=== PATIENT | male | born 1955 | race Asian ===

== ENCOUNTER 2025-02-25 12:05 | Emergency (ER) | payer MEDICARE, MEDICAID, SELFPAY ==
[2025-02-25 12:07] VITALS: BMI 23.2
[2025-02-25 12:25] VITALS: BP 118/64; PULSE 104; RESP 18; TEMP 37.1; O2SAT 97
--- NOTE | 2025-02-25 12:36 | XR_ITS ---
Examination: Foot, left views, 3 views Technique: AP, oblique, lateral views foot, 3 views Date and time of exam: February 25, 2025 12:45 PM Indications: Nonhealing ulcer first digit noticed beginning one month ago. Findings: Cortical bone destruction ungual tuft tip distal phalanx first digit with associated soft tissue ulcer No fracture No foreign body Impression: Osteomyelitis ungual tuft tip distal phalanx first digit
--- NOTE | 2025-02-25 12:47 | PD.EDRME ---
Rapid Medical Screening Exam [facility] Arrival date/time: 02/25/25 12:05 This is a 69-year-old male that comes into the emergency room with complaints of left great toe pain. Patient denies trauma to this toe. Patient also states that is left foot is swollen. However on assessment it appears that both is feet appear to be swollen. Patient has some mild erythema to his left great toe and also wound to the top of his left great toe. Patient denies past medical history. I have greeted and performed a focused initial assessment of this patient. Initial appropriate labs ordered at this time. A comprehensive ED assessment and evaluation of the patient and analysis of all test and completion of medical decision making process will be conducted by additional ED provider. Chief Complaint: Extremity Problem,Nontraumatic Time Seen by Provider: 02/25/25 12:09 Vital signs: Vital Signs Temperature 98.8 F 02/25/25 12:25 Pulse Rate 104 H 02/25/25 12:25 Respiratory Rate 18 02/25/25 12:25 Blood Pressure 118/64 02/25/25 12:25 Pulse Oximetry (%) 97 02/25/25 12:25 Oxygen Delivery Method Room Air 02/25/25 12:25
[2025-02-25 13:12] LABS: Basophils # (Auto) 0.1 Thou/mm3 (0.0-0.2); Basophils % (Auto) 1 % (0-2.5); Eosinophils # (Auto) 0.2 Thou/mm3 (0.0-0.5); Eosinophils % (Auto) 2 % (0-10); Hematocrit 37.0 % (41.0-53.0); Hemoglobin 12.1 g/dL (13.5-16.0); Immature Granulocytes Auto 0.02 Thou/mm3 (0.00-0.00); Lymphocytes # (Auto) 2.1 Thou/mm3 (1.0-4.8); Lymphocytes % (Auto) 31 % (10-50); Mean Corpuscular HGB Conc 32.7 g/dl (31.0-37.0); Mean Corpuscular Hemoglobin 26.7 pg (25.0-35.0); Mean Corpuscular Volume 82 fL (80-100); Monocytes # (Auto) 0.8 Thou/mm3 (0.0-0.8); Monocytes % (Auto) 12 % (0-12); Neutrophils # (Auto) 3.7 Thou/mm3 (1.8-7.7); Neutrophils % (Auto) 54 % (37-80); Nucleated Red Blood Cell # 0.00 Thou/mm3 (0.00-0.00); Nucleated Red Blood Cell % 0 /100 WBC (0); Platelet Count 250 Thou/mm3 (140-440); RDW Standard Deviation 42.2 fL (35.1-43.9); Red Blood Count 4.54 Miln/mm3 (4.50-5.90); White Blood Count 6.8 Thou/mm3 (3.8-10.6)
[2025-02-25 13:47] LABS: Alanine Aminotransferase 24 U/L (10-49); Albumin, Serum 4.3 gm/dL (3.4-4.8); Albumin/Globulin Ratio 1.5 (1.2-2.2); Alkaline Phosphatase 113 U/L (46-116); Anion Gap 7 (7-16); Aspartate Amino Transferase 22 U/L (0-34); BUN/Creatinine Ratio 16 Ratio (12-20); Bilirubin,Total 0.4 mg/dL (0.3-1.2); Blood Urea Nitrogen 18 mg/dL (9-23); C-Reactive Protein < 0.5 mg/dL (0.0-0.9); Calcium 9.4 mg/dL (8.3-10.6); Calcium (Corrected) 9.4 mg/dL (8.5-10.1); Carbon Dioxide 31.3 mMol/L (20.0-31.0); Chloride 102 mMol/L (98-107); Creatinine (Component) 1.1 mg/dL (0.6-1.3); Estimated Creatinine Clearance 47.6 mL/min (>60); Globulin 2.8 gm/dL (2.3-3.5); Glucose 93 mg/dL (74-106); Osmolality,Calculated 281 (275-295); Potassium 3.9 mMol/L (3.4-5.1); Sodium 140 mMol/L (136-145); Total Protein 7.1 gm/dL (5.7-8.2); eGFR > 60 See Note
[2025-02-25 15:12] VITALS: BP 127/66; PULSE 90; RESP 17; TEMP 36.5; O2SAT 99
--- NOTE | 2025-02-25 15:22 | PD.EDWOUND ---
ED Wound/Laceration-RME/HPI General Chief Complaint: Extremity Problem,Nontraumatic Stated Complaint: BLE SWELLING, L. LEG FEELS HOT, WOUND TO LEFT LEG Time Seen by Provider: 02/25/25 12:09 Arrival date/time: 02/25/25 12:05 Limitations: no limitations RME / HPI RME / HPI narrative: 69-year-old male who is here today as his friend who helps provide the translation. He is here today with a left great toe pain. He states a couple weeks ago, he had a blister that he cut into. He now has surrounding erythema, edema, and pain. He denies any chronic medical illness including diabetes. He has no other injuries or concerns. Related Data Home Medications ?Medication ?Instructions ?Recorded ?Confirmed ciprofloxacin HCl 500 mg tablet ##14 05/17/14 ibuprofen 600 mg tablet ##60 05/17/14 ranitidine HCl 150 mg tablet ##60 05/17/14 Previous Rx's ?Medication ?Instructions ?Recorded ibuprofen 600 mg tablet 600 mg PO Q6HR PRN PAIN #25 tabs 04/21/16 clindamycin HCl 300 mg capsule 300 mg PO Q6H #28 caps 02/25/25 Allergies Allergy/AdvReac Type Severity Reaction Status Date / Time No Known Allergies Allergy Verified 02/25/25 12:07 Review of Systems Review of Systems Systems Reviewed: All systems reviewed, normal except as documented ED Exam General Limitations: Present no limitations General appearance: Present alert and in no apparent distress Head Head exam: Present atraumatic Eye Eye exam: Present normal appearance, PERRL and EOMI ENT ENT exam: Present normal exam, normal oropharynx and mucous membranes moist Neck Neck exam: Present normal inspection, full ROM and trachea midline Chest Chest inspection: Present normal inspection and symmetric chest wall rise Respiratory Respiratory exam: Present normal lung sounds bilaterally Cardiovascular Cardiovascular exam: Present regular rate, normal rhythm and normal heart sounds Abdominal Exam Abdominal exam: Present soft and normal bowel sounds Extremities Exam Extremities exam: Present normal inspection and full ROM Back Exam Back exam: Present normal inspection and full ROM Neurological Exam Neurological exam: Present alert and oriented X3 Psychiatric Psychiatric exam: Present normal affect and normal mood Skin Skin exam: Present warm and other (Mild erythema at the left helix. There is no fluctuance or discharge. There is a healing, distal, wound..) Course Quality Measures none Orders Category Date Time Status XR foot comp LT min 3V Stat Exams 02/25/25 12:36 Completed CBC Stat Lab 02/25/25 13:04 Completed CRP [C-Reactive Protein] Stat Lab 02/25/25 13:04 Completed Comprehensive Metabolic Panel Stat Lab 02/25/25 13:04 Completed Clindamycin Vial [Cleocin vial] Med 02/25/25 15:18 Discontinued 600 mg IM X1 ONE Vital Signs Vital signs: Vital Signs Temperature 98.8 F 02/25/25 12:25 Pulse Rate 104 H 02/25/25 12:25 Respiratory Rate 18 02/25/25 12:25 Blood Pressure 118/64 02/25/25 12:25 Pulse Oximetry (%) 97 02/25/25 12:25 Oxygen Delivery Method Room Air 02/25/25 12:25 Wound / Laceration MDM Narrative MDM Narrative:: 69-year-old male who is here today as his friend who helps provide the translation. He is here today with a left great toe pain. He states a couple weeks ago, he had a blister that he cut into. He now has surrounding erythema, edema, and pain. He denies any chronic medical illness including diabetes. He has no other injuries or concerns. Hospital admission was offered to the patient but he declined. He states he has a girlfriend at home that stays in a wheelchair and needs assistance. We discussed the possibility of progression of his disease including worsening infection. Patient verbalized understanding. He will be given a dose of clindamycin and be discharged with a prescription of clindamycin. He is encouraged to follow-up with his doctor closely this week for close recheck. He was invited return here at anytime for any worsening or emergent changes. Patient data External records reviewed:: None Clinical information provided by:: patient Social determinants that could affect healthcare access:: none Patient has the following chronic illnesses:: n/a How is presenting disease/condition affected by chronic disease/condition?: no chronic disease Evaluation data The following diagnostics were reviewed and interpreted by me:: lab results (No significant leukocytosis or anemia. There is no metabolic derangement. CRP is unremarkable.) and radiology exam(s) (No acute fracture. Radiology reports osteomyelitis of the left big toe.) Lab and/or radiology exams considered but not ordered:: n/a Interpretation Summary: Osteomyelitis of left toe Medications / Prescriptions Medications or Prescriptions considered but not ordered:: n/a Medication administrations:: Medication Administration History Discontinued Medications Clindamycin Phosphate (Clindamycin Phos Inj 150 Mg/Ml Vial 6 Ml) 600 mg IM X1 ONE Stop: 02/25/25 15:19 See above Consultations Consultation(s) initiated? (list below): No Diagnosis Wound Differential Diagnosis: abscess and avulsion of skin Most likely diagnosis given after review of the tests above:: Osteomyelitis Admission Indicated Admission indicated?: indicated Admission Request Was there a request for admission?: No Disposition Plan Disposition Plan: Discharge Discharge Attestation Discharge Attestation: The patient and all family members were given an opportunity to ask questions and understood the discharge instructions. Discharge instructions specifically effects, indications for sooner follow up or return to the emergency department, and the expected course of current diagnosis. Patient condition: Stable Discharge Plan Plan Patient Disposition: HOME (Self Care) Patient condition on transfer: Stable Prescriptions/Referrals Prescriptions/Med Rec: New clindamycin HCl 300 mg capsule 300 mg PO Q6H Qty: 28 0RF No Action ciprofloxacin HCl 500 MG tablet Qty: 14 ranitidine HCl 150 MG tablet Qty: 60 ibuprofen 600 MG tablet Qty: 60 ibuprofen 600 MG tablet 600 mg PO Q6HR PRN (Reason: PAIN) Qty: 25 0RF Problem List Clinical Impression: Acute osteomyelitis of toe Patient/Caregiver Discharge Instructions Education Materials: Osteomyelitis Dc Additional Instructions: - Use the provided antibiotics as prescribed. - It is extremely important that you follow-up with your doctor this week for recheck. - We have advised hospital admission to which you have declined. Without further intervention, your infection may lead to loss of your toe, or worsening infection. - You are invited to return at anytime for any worsening or emergent changes. Print Language: Armenian Stand Alone Forms: Jaqueline Award Info., Patient Portal Info Letter
[2025-02-25] MEDS: CLINDAMYCIN PHOS INJ 150 MG/ML VIAL 6 ML 600 MG IM (16:41)
== END 2025-02-25 16:50 | disposition home or self-care (01) ==
LOC: SERX 16:55
PROVIDERS: Nurse Practitioner Family; Emergency Provider Emergency Medicine
DX: M86.172 Other acute osteomyelitis, left ankle and foot (principal)
CPT/HCPCS: 36415; 73630; 80053; 85025; 86140; 99283; J0736

== ENCOUNTER 2025-03-27 05:06 | Emergency (ER) | payer MEDICARE, MEDICAID, SELFPAY ==
[2025-03-27 05:10] VITALS: PULSE 100; RESP 22; O2SAT 99
--- NOTE | 2025-03-27 05:17 | PD.EDRME ---
Rapid Medical Screening Exam [facility] Arrival date/time: 03/27/25 05:06 Chief Complaint: Extremity Injury, Lower Vital signs: Vital Signs Pulse Rate 106 H 03/27/25 05:19 Respiratory Rate 32 H 03/27/25 05:19 Blood Pressure 118/56 L 03/27/25 05:19 Pulse Oximetry (%) 89 L 03/27/25 05:19 Oxygen Delivery Method Room Air 03/27/25 05:19 Vital signs reviewed by provider: Yes RME Narrative: 69yo male presents by EMS after having assumed upright position and developing intense pain of the LLE, and collapsed. No head strike or LOC. No reported chest pain or shortness of breath. Remained hemodynamically stable en route. PMH unremarkable for HTN, DM, asthma. Patient previously dx with prostate CA; was seen ~[address] [facility] with osteomyelitis. Clinical exam demonstrates evidence of possible arterial occlusion of LLE with transient mottling and poorly palpable pulses from femoral distally. Will initiate heparin therapy and obtain doppler US, as the patient will likely need CTA with run off.
--- NOTE | 2025-03-27 05:18 | EKG_ITS ---
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[id number] Requested By: Otoniel Das Order Number: [id number] Reading MD: Otoniel Das Measurements Intervals [place] Rate: 107 P: 66 LA: 199 QRS: 61 QRSD: 71 T: 83 QT: 311 QTc: 416 Interpretive Statements SINUS TACHYCARDIA LOW QRS VOLTAGE IN PRECORDIAL LEADS [QRS DEFLECTION < 1.0 mV IN CHEST LEADS] POSSIBLE RIGHT VENTRICULAR CONDUCTION DELAY [RSR (QR) IN V1/V2] ST ELEVATION, CONSIDER ANTERIOR INJURY [MARKED ST ELEVATION W/O NORMALLY INFLECTED T-WAVE IN V2-V5] MARKED ST ELEVATION, CONSIDER INFERIOR INJURY [MARKED ST ELEVATION W/O NORMALLY INFLECTED T-WAVE IN II/aVF] ACUTE FL No previous ECG available for comparison /store/[email or web address]/[id number]/[id number].pdf
--- NOTE | 2025-03-27 05:18 | XR_ITS ---
Examination: Arterial duplex lower extremity, left unilateral Date and time of exam: March 27, 2025, 0534 hours INDICATIONS: Leg pain and swelling today, left Findings: Duplex sonographic imaging of the lower extremity arteries using B-mode/Jama scale imaging and Doppler spectral analysis and color flow. Left common femoral artery demonstrates monophasic flow. Left superficial femoral artery demonstrates monophasic flow. Left popliteal artery demonstrates monophasic flow. Left posterior tibial artery demonstrated no flow. 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
[2025-03-27 05:19] VITALS: BP 118/56; PULSE 106; RESP 32; O2SAT 89
[2025-03-27 05:25] VITALS: BMI 22.1
--- NOTE | 2025-03-27 05:30 | PC.NURSE ---
TIM CH AT BEDSIDE. WHO STATES PT DID NOT HAVE A FALL, BUT WAS AWOKEN BY PT WHO WAS INSTRUCTING HER TO 911 DUE TO LEFT LOWER EXTREMITY PAIN. ON ARRIVAL, PT'S LEFT LOWER EXTREMITY APPEARS TO HAVE MOTTLING AND DIFFICULTY PALPABLE PULSES DISTAL FROM FEMORAL ARTERY. MD Rahul SANTOS AT BEDSIDE ASSESSING PT AT THIS TIME. PT PLACED ON CARDIAC AND VITAL SIGN MONITORING. PT APPEARS TO BE LABORED, TACHYPENIC, RR32, SATING 88%. PT PLACED ON OXY AT 10L PULSE OX IMPROVED TO 100% ON OXY. NEW ORDERS PROVIDED. WILL F/U WITH PT NEW ORDERS.
[2025-03-27] MEDS: ONDANSETRON INJ 2 MG/ML INJ 2 ML 4 MG IVP (05:32)
[2025-03-27] MEDS: MORPHINE SULF INJ 10 MG/ML VIAL 2 MG IVP (05:33)
[2025-03-27 05:34] LABS: Basophils # (Auto) 0.1 Thou/mm3 (0.0-0.2); Basophils % (Auto) 1 % (0-2.5); Eosinophils # (Auto) 0.1 Thou/mm3 (0.0-0.5); Eosinophils % (Auto) 1 % (0-10); Hematocrit 25.6 % (41.0-53.0); Immature Granulocytes Auto 0.16 Thou/mm3 (0.00-0.00); Lymphocytes # (Auto) 3.6 Thou/mm3 (1.0-4.8); Lymphocytes % (Auto) 22 % (10-50); Mean Corpuscular HGB Conc 32.4 g/dl (31.0-37.0); Mean Corpuscular Hemoglobin 26.4 pg (25.0-35.0); Mean Corpuscular Volume 82 fL (80-100); Monocytes # (Auto) 0.8 Thou/mm3 (0.0-0.8); Monocytes % (Auto) 5 % (0-12); Neutrophils # (Auto) 11.5 Thou/mm3 (1.8-7.7); Neutrophils % (Auto) 71 % (37-80); Nucleated Red Blood Cell # 0.00 Thou/mm3 (0.00-0.00); Nucleated Red Blood Cell % 0 /100 WBC (0); Platelet Count 239 Thou/mm3 (140-440); RDW Standard Deviation 40.1 fL (35.1-43.9); Red Blood Count 3.14 Miln/mm3 (4.50-5.90); White Blood Count 16.2 Thou/mm3 (3.8-10.6)
[2025-03-27] MEDS: SODIUM CHLORIDE 0.9% 1000 ML 1,000 ML 999 ML IV (05:35)
[2025-03-27 05:48] LABS: INR 1.1 (0.9-1.3); Prothrombin Time 12.3 Seconds (9.0-12.2)
[2025-03-27 05:54] LABS: Alanine Aminotransferase 11 U/L (10-49); Albumin, Serum 3.5 gm/dL (3.4-4.8); Albumin/Globulin Ratio 1.7 (1.2-2.2); Alkaline Phosphatase 69 U/L (46-116); Anion Gap 16 (7-16); Aspartate Amino Transferase 17 U/L (0-34); BUN/Creatinine Ratio 38 Ratio (12-20); Bilirubin,Total 0.4 mg/dL (0.3-1.2); Blood Urea Nitrogen 50 mg/dL (9-23); Calcium 9.0 mg/dL (8.3-10.6); Calcium (Corrected) 9.4 mg/dL (8.5-10.1); Carbon Dioxide 20.8 mMol/L (20.0-31.0); Chloride 103 mMol/L (98-107); Creatinine (Component) 1.3 mg/dL (0.6-1.3); Estimated Creatinine Clearance 38.6 mL/min (>60); Globulin 2.1 gm/dL (2.3-3.5); Glucose 195 mg/dL (74-106); Osmolality,Calculated 297 (275-295); Potassium 4.1 mMol/L (3.4-5.1); Sodium 140 mMol/L (136-145); Total Protein 5.6 gm/dL (5.7-8.2); Troponin I < 0.020 ng/mL (0.0-0.045); eGFR 59 See Note
[2025-03-27 06:01] VITALS: BP 102/59; PULSE 106; RESP 20; TEMP 36.4; O2SAT 100
--- NOTE | 2025-03-27 06:13 | XR_ITS ---
Examination: AP chest single view TECHNIQUE: AP portable semiupright chest single view Date and time: March 27, 2025, 0611 hours INDICATIONS: Shortness of breath today FINDINGS: Normal heart size Ectatic thoracic aorta. No pneumonia or pulmonary edema Prominent osteopenia IMPRESSION: No pneumonia or pulmonary edema
[2025-03-27 06:43] LABS: Hemoglobin 8.3 g/dL (13.5-16.0)
--- NOTE | 2025-03-27 06:51 | XR_ITS ---
Examination: CTA abdominal aorta iliofemoral runoff. 2-D sagittal coronal reconstructions. 3-D reconstructions, vascular March 27, 2025, 0739 hours INDICATIONS: Nonhealing ulcer distal portion first digit left foot 1 month Technique: Multiple CTA images of the abdominal aorta iliofemoral runoff arterial vessels, 2.0 mm slice thickness, post intravenous administration 130 cc Isovue 370 2-D sagittal coronal reconstructions. 3-D reconstructions, vascular 3-D postprocessing, including vascular maximum intensity projection images, 3-D volume rendering Low dose protocols were performed. One or more of the following dose reduction techniques were used; automated exposure control, adjustment of the mA and/or KV according to patient size, use of iterative reconstruction technique. 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 90% stenosis left common femoral artery 80% stenosis proximal 15 mm left superficial femoral artery 70% stenosis distal left superficial femoral artery Popliteal artery does fill Occlusions proximal left anterior tibial artery, multiple with no filling mid to distal left anterior tibial artery Left posterior tibial artery and main continuation tract demonstrated multiple stenoses and are severely attenuated There is filling of the dorsalis pedis artery. IMPRESSION: Mild aneurysmal dilatation infrarenal abdominal aorta Occlusion left common iliac artery. Occlusion left external iliac artery 90% stenosis left common femoral artery 80% stenosis proximal left superficial femoral artery 70% stenosis distal left superficial femoral artery Occlusions proximal left anterior tibial artery, multiple occlusions left posterior tibial artery and main continuation from
--- NOTE | 2025-03-27 06:52 | PD.EDEXREM ---
ED Extremity Problem RME/HPI General Chief complaint: Extremity Injury, Lower Stated complaint: FALL,LT LEG PAIN Time Seen by Provider: 03/27/25 06:36 Arrival date/time: 03/27/25 05:06 RME / HPI RME / HPI Narrative: 69yo male presents by EMS after having assumed upright position and developing intense pain of the LLE, and collapsed. No head strike or LOC. No reported chest pain or shortness of breath. Remained hemodynamically stable en route. PMH unremarkable for HTN, DM, asthma. 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 Clinical exam demonstrates evidence of possible arterial occlusion of LLE with transient mottling and poorly palpable pulses from femoral distally. Will initiate heparin therapy and obtain doppler US, as the patient will likely need CTA with run off. DR. CHRISTINE MAIN ED EVALUATION 69 year old male with history of prostate cancer status post XRT completed in 2013 and diagnosed with osteomyelitis of the left great toe ~ 1 month ago presents to the ED brought in by ambulance for evaluation of left lower extremity pain beginning yesterday and remaining constant since. Described as aching in sensation that is located all through the left lower extremity though most severe from the knee down to his foot. Patient denies any trauma/injuries. Denies any history of similar symptoms. Related Data Home Medications ?Medication ?Instructions ?Recorded ?Confirmed ciprofloxacin HCl 500 mg tablet ##14 05/17/14 ibuprofen 600 mg tablet ##60 05/17/14 ranitidine HCl 150 mg tablet ##60 05/17/14 Previous Rx's ?Medication ?Instructions ?Recorded ibuprofen 600 mg tablet 600 mg PO Q6HR PRN PAIN #25 tabs 04/21/16 clindamycin HCl 300 mg capsule 300 mg PO Q6H #28 caps 02/25/25 Allergies Allergy/AdvReac Type Severity Reaction Status Date / Time No Known Allergies Allergy Verified 03/27/25 05:19 Review of Systems Review of Systems Systems Reviewed: All systems reviewed, normal except as documented Past Medical History Social History SMOKING STATUS: Current some day smoker ED Exam Narrative Physical exam: Constitutional: Awake, alert, nontoxic, no acute distress HEENT: NC, AT, EOMI Neck: Supple CV: Mildly tachycardic, no m/r/g Lungs: CTAB, no w/r/r, no respiratory distress. Abd: Soft, NT, NT, no HSM noted to palpation Extremities: No deformities, the left foot is slightly cooler L>R, left foot is pale and mottled compared to the right foot Neuro: AAOx3, CN 2-12 GIBL, no acute neuro deficit noted. Skin: Warm, dry, intact Course Course Course Narrative: POCUS US performed at bedside to measure the aorta with is 3.4cm in diameter in the mid abdomen that is mildly dilated. I have discussed exam and US finding with the charge nurse and will initiate transfer. Patients hemoglobin dropped from 12.1 on 02/25/2025 to 8.3 today. Patient denies any obvious bleeding, blood in stool or urine. A stool hemoccult exam performed and was negative, stool brown in cool. 0736h: I spoke with vascular surgeon Dr. Ramsey at [facility]. He declines to accept the patient until the CTA is back to confirm there is an occlusion. Discussed there appears to be very high concern for arterial occlusion. Requesting CTA results to confirm occlusion and before accepting the patient for transfer. 0905h: Results of CT angio back, relayed to [facility], patient is excepted ED to ED. Patient remains on heparin drip at this time. 0923h: ETA for transfer is about 10 minutes at this time. Patient remaining vitally stable at present. Quality Measures none Orders Category Date Time Status CT Screening NOW Care 03/27/25 06:51 Active EKG (ED ONLY) *Do not use* NOW Care 03/27/25 05:18 Completed Notify provider NOW Care 03/27/25 05:26 Active Notify provider NOW Care 03/27/25 05:26 Active Referral - Supervisor [employer] Stat Cons 03/27/25 07:[address] angio abd ilio fem runoff Stat Exams 03/27/25 06:51 Completed CXR [XR chest 1V] Stat Exams 03/27/25 06:13 Completed EKG (ED Only) Stat Exams 03/27/25 05:18 Draft US arterial duplex LE LT Stat Exams 03/27/25 05:18 Completed CBC Stat Lab 03/27/25 05:20 Completed Comprehensive Metabolic Panel Stat Lab 03/27/25 05:20 Completed Lactate (Lactic Acid) Stat Lab 03/27/25 07:22 Ordered Occult Blood, Stool (LAB) Stat Lab 03/27/25 07:12 Ordered PT [Prothrombin Time with INR] Stat Lab 03/27/25 13:10 Ordered PTT [Partial Thromboplastin Time] Stat Lab 03/27/25 13:10 Ordered Partial Thromboplastin Time AM DRAW Lab 03/29/25 05:00 Ordered Partial Thromboplastin Time Stat Lab 03/27/25 05:20 Completed Prothrombin Time with INR AM DRAW Lab 03/29/25 05:00 Ordered Prothrombin Time with INR Stat Lab 03/27/25 05:20 Completed Troponin I Stat Lab 03/27/25 05:20 Completed VBG [Venous Blood Gas] Stat Lab 03/27/25 07:23 Ordered Heparin Inj Med 03/27/25 05:25 Discontinued 4,240 unit IV X1 ONE Heparin/D5w 25K 250 ML Ivpb [Heparin in D5w Ivpb] Med 03/27/25 07:00 Discontinued 25,000 unit in 250 ml IV 12 units/kg/hr Heparin/D5w 25K 250 ML Ivpb [Heparin in D5w Ivpb] Med 03/27/25 07:15 Active 25,000 unit in 250 ml IV 18 units/kg/hr Morphine Inj Med 03/27/25 05:18 Discontinued 2 mg IVP X1 ONE Ondansetron Inj [Zofran Inj] Med 03/27/25 05:18 Discontinued 4 mg IVP X1 ONE Sodium Chloride 0.9% 1000 ml [Ns] 1,000 ml Med 03/27/25 05:31 Discontinued IV 999 mls/hr Vital Signs Vital signs: Vital Signs Pulse Rate 106 H 03/27/25 05:19 Respiratory Rate 32 H 03/27/25 05:19 Blood Pressure 118/56 L 03/27/25 05:19 Pulse Oximetry (%) 89 L 03/27/25 05:19 Oxygen Delivery Method Room Air 03/27/25 05:19 Pulse ox is 100% on room air which is adequate. Extremity Problem MDM Narrative MDM Narrative:: Tiffanie Seymour am scribing for and in the presence of Dr. Christine. Patient data External records reviewed:: [facility] previous records (I reviewed ED visit on 02/25/2025 where he was diagnosed with left osteomyelitis ) and EMS form Clinical information provided by:: patient and EMS Social determinants that could affect healthcare access:: none Patient has the following chronic illnesses:: prostate cancer status post XRT completed in 2013 and diagnosed with osteomyelitis of the left great toe ~ 1 month ago How is presenting disease/condition affected by chronic disease/condition?: uneffected by Evaluation data The following diagnostics were reviewed and interpreted by me:: lab results, radiology exam(s) and EKG tracing(s) Lab and/or radiology exams considered but not ordered:: None Interpretation Summary: 03/27/2025 @ 05:27 AM. Sinus tachycardia, rate 107, no STEMI Ordering Physician: Otoniel Velasquez DO Date of Service: 03/27/25 Procedure(s): US arterial duplex LE LT Accession Number(s): [id number] cc: Otoniel Velasquez DO; Jacob King MD~ Examination: Arterial duplex lower extremity, left unilateral Date and time of exam: March 27, 2025, 0534 hours INDICATIONS: Leg pain and swelling today, left Findings: Duplex sonographic imaging of the lower extremity arteries using B-mode/Jama scale imaging and Doppler spectral analysis and color flow. Left common femoral artery demonstrates monophasic flow. Left superficial femoral artery demonstrates monophasic flow. Left popliteal artery demonstrates monophasic flow. Left posterior tibial artery demonstrated no flow. 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 No pneumonia or pulmonary edema Prominent osteopenia IMPRESSION: No pneumonia or pulmonary edema Dictated By: Jacob King MD Signed By: <Electronically signed by Jacob King MD in OV> 03/27/25 0752 Medications / Prescriptions Medications or Prescriptions considered but not ordered:: None Medication administrations:: Medication Administration History Heparin Sodium/Dextrose (Heparin In D5w Ivpb) 25,000 unit in 250 mls @ 9.553 mls/hr IV .Q24H [facility]; Protocol Stop: 04/10/25 07:14 Last Admin: 03/27/25 07:10 Dose: 18 units/kg/hr, 9.553 mls/hr Documented By: GAYLA Co-signed By: VG Discontinued Medications Heparin Sodium (Porcine) (Heparin Sod Inj 5000 Unit/Ml Vial) 4,240 unit IV X1 ONE; Protocol Stop: 03/27/25 05:26 Last Admin: 03/27/25 08:03 Dose: 4,240 unit Documented By: BERNARD Co-signed By: VIRGINIE Heparin Sodium/Dextrose (Heparin In D5w Ivpb) 25,000 unit in 250 mls @ 6.368 mls/hr IV .Q24H VINAY; Protocol Stop: 04/10/25 06:59 Last Admin: 03/27/25 07:10 Dose: Not Given Documented By: GAYLA Non-Admin Reason: Cancelled by Provider Sodium Chloride (Ns) 1,000 mls @ 999 mls/hr IV .Q1H1M ONE Stop: 03/27/25 06:31 Last Infusion: 03/27/25 06:45 Dose: Infused Documented By: Admin: 03/27/25 05:35 Dose: 999 mls/hr Documented By: GAYLA Morphine Sulfate (Morphine Sulf Inj 10 Mg/Ml Vial) 2 mg IVP X1 ONE Stop: 03/27/25 05:19 Last Admin: 03/27/25 05:33 Dose: 2 mg Documented By: GAYLA Ondansetron HCl (Ondansetron Inj 2 Mg/Ml Inj 2 Ml) 4 mg IVP X1 ONE; Protocol Stop: 03/27/25 05:19 Last Admin: 03/27/25 05:32 Dose: 4 mg Documented By: GAYLA See above Consultations Consultation(s) initiated? (list below): Yes Consultation #1 (Physician, Specialty, Details): I spoke with vascular surgeon Dr. Ramsey at [facility] as noted above. Time: 07:36 Diagnosis Extremity Problem Differential Diagnosis: gout, cellulitis and deep vein thrombosis of lower extremity Most likely diagnosis given after review of the tests above:: Arterial occlusion left lower extremity Admission Indicated Admission indicated?: not indicated Explain why admission is indicated or not indicated:: Transfer for vascular surgery Admission Request Was there a request for admission?: No Disposition Plan Disposition Plan: Transfer Critical Care Time Critical Care Time Critical Care Time: Yes Total Critical Care Time (min.): 36 Attestation: . Discharge Plan Plan Patient Disposition: [facility] Acute Care [facility] Pt Being Transferred to: [facility] Service Needed for Transfer: Vascular Surgery Patient condition on transfer: Stable Health Concerns: Note: Hb dipped from 12g to 8g in the past month - unknown cause - fecal occult negative. Prescriptions/Referrals Prescriptions/Med Rec: No Action ciprofloxacin HCl 500 MG tablet Qty: 14 ranitidine HCl 150 MG tablet Qty: 60 ibuprofen 600 MG tablet Qty: 60 ibuprofen 600 MG tablet 600 mg PO Q6HR PRN (Reason: PAIN) Qty: 25 0RF clindamycin HCl 300 mg capsule 300 mg PO Q6H Qty: 28 0RF Referrals: No Primary/Family,Physician [Primary Care Provider] - In 1 week Problem List Clinical Impression: Arterial occlusion, lower extremity Patient/Caregiver Discharge Instructions Print Language: Kyrgyz Stand Alone Forms: Jaqueline Award Info., Patient Portal Info Letter
--- NOTE | 2025-03-27 07:05 | PC.NURSE ---
DR CHRISTINE AT BEDSIDE PERFORMING STOOL OCCULT
[2025-03-27] MEDS: Heparin/D5w 25K 250 ML Ivpb 25,000 UNIT/250 ML BAG 9.553 UNIT IV (07:10)
[2025-03-27 07:11] LABS: Partial Thromboplastin Time 27.1 Seconds (22.0-36.0)
--- NOTE | 2025-03-27 07:22 | PC.CM ---
Addendum entered by Adrianne Mendez RN 03/27/25 12:51: 0930Patient accepted by DR Evans ED to ED. number to call report [phone]. Packet completed with 1 CD for [facility] and 1 packet for [facility]. Patient left at 1000. Addendum entered by Adrianne Mendez RN 03/27/25 08:51: 0850 I called and spoke to Tere at [facility] and I made sure she received the the CTA results. Addendum entered by Adrianne eMndez RN 03/27/25 08:46: 0845 I faxed results to of the CTA to [facility]. I updated Sabina charge nurse. Sabina states Dr. Wong would like patinet sent stat with air team once [facility] reviews CTA and gets back to us. Addendum entered by Adrianne Mendez RN 03/27/25 07:51: 0840 I received a call from Tere at the transfer center at [facility]. She states their doctor spoke to Dr. Wong and they are requesting CT. They would like to see the CT result once they are available. CT was ordered. Original Note: 0712 I received a referral to transfer patient for vascular surgery for LLE for lower left ext. artery occlusion. I faxed paperwork to [facility].
--- NOTE | 2025-03-27 07:30 | PC.NURSE ---
pt taken to CT by decontamination technician, accompanied by this RN.
[2025-03-27 08:00] VITALS: BP 121/64; PULSE 105; RESP 14; TEMP 36.9; O2SAT 100
[2025-03-27] MEDS: HEPARIN SOD INJ 5000 UNIT/ML VIAL 4240 UNIT IV (08:03)
--- NOTE | 2025-03-27 09:49 | PC.NURSE ---
Reach here to transfer pt. Heparin drip transferred with pt.
[2025-03-27 09:55] VITALS: BP 122/66; PULSE 100; RESP 16; TEMP 36.9; O2SAT 99
== END 2025-03-27 10:00 | disposition short-term general hospital (02) ==
PROVIDERS: Emergency Medicine; Emergency Provider Family Medicine
DX: I70.202 Unspecified atherosclerosis of native arteries of extremities, left leg (principal); R00.0 Tachycardia, unspecified
CPT/HCPCS: 36415; 71045; 75635; 80053; 82270; 82803; 83605; 84484; 85025; 85610; 85730; 93005; 93926; 96361; 96374; 96375; 99284; A4649; J1644; J2270; J2405; J7030; Q9967

== ENCOUNTER 2025-03-29 18:46 | Emergency (ER) | payer MEDICARE, MEDICAID, SELFPAY ==
[2025-03-29 18:53] VITALS: BP 126/71; PULSE 88; RESP 17; TEMP 36.8; O2SAT 100
--- NOTE | 2025-03-29 18:56 | PD.EDEXREM ---
ED Extremity Problem RME/HPI General Chief complaint: Extremity Injury, Lower Stated complaint: LEG NUMBNESS Time Seen by Provider: 03/29/25 18:50 Arrival date/time: 03/29/25 18:46 RME / HPI RME / HPI Narrative: DR. GONZALEZ MAIN ED EVALUATION: 69 y/o male with Hx of Smoking BIBA from home presents to ED c/o continued left leg numbness x 2 months. Per EMS, on arrival patient was GCS 15, 98% O2 sat on room air, and blood pressure of 152/84. Patient was seen here 2 days ago and transferred to [facility] for further evaluation and treatment of blood clots. No procedure was performed. Patient was discharged from [facility] on Wednesday and prescribed Plavix and ASA, but prescription was not filled. No other concerns or complaints expressed at this time. Related Data Home Medications ?Medication ?Instructions ?Recorded ?Confirmed ciprofloxacin HCl 500 mg tablet ##14 05/17/14 ibuprofen 600 mg tablet ##60 05/17/14 ranitidine HCl 150 mg tablet ##60 05/17/14 Previous Rx's ?Medication ?Instructions ?Recorded ibuprofen 600 mg tablet 600 mg PO Q6HR PRN PAIN #25 tabs 04/21/16 clindamycin HCl 300 mg capsule 300 mg PO Q6H #28 caps 02/25/25 Allergies Allergy/AdvReac Type Severity Reaction Status Date / Time No Known Allergies Allergy Verified 03/27/25 05:19 Review of Systems Review of Systems Systems Reviewed: All systems reviewed, normal except as documented Past Medical History Social History SMOKING STATUS: Current some day smoker ED Exam Narrative Physical exam: Generally the patient is in no obvious distress, heart is regular rate and rhythm, lungs clear to auscultation equal bilaterally, abdomen soft bowel sounds present nondistended nontender, neurologic exam patient is alert and oriented without focal motor deficits, extremities show no swelling to either lower extremity. The left lower extremity shows a very weakly palpable left femoral artery pulse with no pulses distally. Patient has a stronger right femoral artery pulse when compared to the left. There is no discoloration or mottling of the skin at this time. Patient has a scabbed over wound to the tip of the left toe. No gangrenous changes. Course Quality Measures none Orders Category Date Time Status Security Professional Q4H START 00 Care 03/29/25 19:42 Active Insert IV NOW Care 03/29/25 19:42 Active CBC Stat Lab 03/29/25 19:50 Completed CMP [Comprehensive Metabolic Panel] Stat Lab 03/29/25 19:50 Completed Morphine Inj Med 03/29/25 19:51 Discontinued 4 mg IVP X1 ONE Vital Signs Vital signs: Vital Signs Temperature 98.3 F 03/29/25 18:53 Pulse Rate 88 03/29/25 18:53 Respiratory Rate 17 03/29/25 18:53 Blood Pressure 126/71 03/29/25 18:53 Pulse Oximetry (%) 100 03/29/25 18:53 Oxygen Delivery Method Room Air 03/29/25 18:53 Extremity Problem MDM Narrative MDM Narrative:: Scribe Attestation: I, Delaney Charlton, am scribing for and in the presence of Dr. Gonzalez. Provider Notation: Although this document has been carefully reviewed, there may still be some phonetic and other typographical errors.? These errors are purely grammatical due to imperfections in the software program and should not be construed in any way to? compromise the substance of the patient's medical care during this visit. Differential diagnosis: Peripheral vascular disease, peripheral artery disease, aneurysm, DVT I reviewed the patient's paperwork from [facility] 2 days ago. He was transferred from our facility after a CT angiogram of the abdominal aorta with a bilateral iliofemoral runoff showing occlusion of the left common iliac artery, occlusion of the left external iliac artery, 90% stenosis of the left common femoral artery, 80% stenosis of the proximal left superficial femoral artery, 70% stenosis of the distal left superficial femoral artery as well as occlusions to the proximal left anterior tibial artery and multiple occlusions of the left posterior tibial artery. Patient was seen with consultation being obtained from vascular surgeon, Dr. Eavns at [facility] without any intervention being done. The patient was discharged on morphine Plavix aspirin and atorvastatin and was to have a 1 week follow-up with vascular surgeon Dr. Leyva in [place]. Apparently today the patient felt numbness and pain to his left lower extremity so he Nito presents here to the emergency room for further treatment and evaluation. I have reviewed the patient's workup done at our hospital 2 days ago including labs and radiographic studies. Patient is anemic. This is a rather profound drop from his hemoglobin of 12 a little over a month ago. 2 days ago the ER physician guaiac his stool and it was negative. I repeated that guaiac today and the rectal exam showed no gross blood with brown-colored stool and guaiac negative. The BUN was 52 days ago and 38 today. Creatinine is normal. It was stressed to the patient the importance of being on aspirin Plavix atorvastatin and the morphine for pain. He must follow-up with the vascular surgeon in [place]. Patient data External records reviewed:: [facility] previous records (Reviewed prior ED records from 03/27/25. Patient was seen for Arterial occlusion, lower extremity.) and EMS form Clinical information provided by:: patient and EMS Social determinants that could affect healthcare access:: other (specify) (Smoking) Patient has the following chronic illnesses:: None reported How is presenting disease/condition affected by chronic disease/condition?: no chronic disease Evaluation data The following diagnostics were reviewed and interpreted by me:: lab results Lab and/or radiology exams considered but not ordered:: None Interpretation Summary: See MDM above. Medications / Prescriptions Medications or Prescriptions considered but not ordered:: None Medication administrations:: Medication Administration History Discontinued Medications Morphine Sulfate (Morphine Sulf Inj 10 Mg/Ml Vial) 4 mg IVP X1 ONE Stop: 03/29/25 19:52 Last Admin: 03/29/25 20:15 Dose: 4 mg Documented By: IRWIN See above if any Consultations Consultation(s) initiated? (list below): No Diagnosis Extremity Problem Differential Diagnosis: cellulitis, superficial thrombophlebitis, lower extremity edema, deep vein thrombosis of lower extremity and other (PAD) Most likely diagnosis given after review of the tests above:: None Admission Indicated Admission indicated?: not indicated Explain why admission is indicated or not indicated:: Patient does not meet admission criteria. Admission Request Was there a request for admission?: No Disposition Plan Disposition Plan: Discharge Discharge Attestation Discharge Attestation: The patient and all family members were given an opportunity to ask questions and understood the discharge instructions. Discharge instructions specifically effects, indications for sooner follow up or return to the emergency department, and the expected course of current diagnosis. Patient condition: Stable Discharge Plan Plan Patient Disposition: HOME (Self Care) Prescriptions/Referrals Prescriptions/Med Rec: No Action ciprofloxacin HCl 500 MG tablet Qty: 14 ranitidine HCl 150 MG tablet Qty: 60 ibuprofen 600 MG tablet Qty: 60 ibuprofen 600 MG tablet 600 mg PO Q6HR PRN (Reason: PAIN) Qty: 25 0RF clindamycin HCl 300 mg capsule 300 mg PO Q6H Qty: 28 0RF Referrals: Latanya Eng NP [Primary Care Provider] - In 1 week Problem List Clinical Impression: PAD (peripheral artery disease) Patient/Caregiver Discharge Instructions Education Materials: PAD Additional Instructions: You must take your Plavix, aspirin and atorvastatin as prescribed. Take the morphine for pain. You must follow-up with the vascular surgeon in [place], Dr. Evans. Print Language: Norwegian Stand Alone Forms: Jaqueline Award Info., Patient Portal Info Letter
[2025-03-29 19:21] VITALS: PULSE 76; RESP 18; O2SAT 98; BMI 22.3
[2025-03-29 19:34] VITALS: BP 138/78; PULSE 93; RESP 18; TEMP 36.7; O2SAT 100
[2025-03-29 19:42] VITALS: PULSE 90
[2025-03-29 20:03] LABS: Basophils # (Auto) 0.1 Thou/mm3 (0.0-0.2); Basophils % (Auto) 1 % (0-2.5); Eosinophils # (Auto) 0.0 Thou/mm3 (0.0-0.5); Eosinophils % (Auto) 0 % (0-10); Hematocrit 23.3 % (41.0-53.0); Immature Granulocytes Auto 0.03 Thou/mm3 (0.00-0.00); Lymphocytes # (Auto) 1.2 Thou/mm3 (1.0-4.8); Lymphocytes % (Auto) 16 % (10-50); Mean Corpuscular HGB Conc 31.8 g/dl (31.0-37.0); Mean Corpuscular Hemoglobin 25.9 pg (25.0-35.0); Mean Corpuscular Volume 82 fL (80-100); Monocytes # (Auto) 0.6 Thou/mm3 (0.0-0.8); Monocytes % (Auto) 7 % (0-12); Neutrophils # (Auto) 5.9 Thou/mm3 (1.8-7.7); Neutrophils % (Auto) 76 % (37-80); Nucleated Red Blood Cell # 0.00 Thou/mm3 (0.00-0.00); Nucleated Red Blood Cell % 0 /100 WBC (0); Platelet Count 249 Thou/mm3 (140-440); RDW Standard Deviation 40.3 fL (35.1-43.9); Red Blood Count 2.86 Miln/mm3 (4.50-5.90); White Blood Count 7.8 Thou/mm3 (3.8-10.6)
[2025-03-29 20:07] LABS: Hemoglobin 7.4 g/dL (13.5-16.0)
[2025-03-29] MEDS: MORPHINE SULF INJ 10 MG/ML VIAL 4 MG IVP (20:15)
[2025-03-29 21:28] LABS: Alanine Aminotransferase 29 U/L (10-49); Albumin, Serum 3.9 gm/dL (3.4-4.8); Albumin/Globulin Ratio 1.6 (1.2-2.2); Alkaline Phosphatase 71 U/L (46-116); Anion Gap 8 (7-16); Aspartate Amino Transferase 49 U/L (0-34); BUN/Creatinine Ratio 38 Ratio (12-20); Bilirubin,Total 0.3 mg/dL (0.3-1.2); Blood Urea Nitrogen 38 mg/dL (9-23); Calcium 9.5 mg/dL (8.3-10.6); Calcium (Corrected) 9.6 mg/dL (8.5-10.1); Carbon Dioxide 25.7 mMol/L (20.0-31.0); Chloride 108 mMol/L (98-107); Creatinine (Component) 1.0 mg/dL (0.6-1.3); Estimated Creatinine Clearance 54.5 mL/min (>60); Globulin 2.4 gm/dL (2.3-3.5); Glucose 126 mg/dL (74-106); Osmolality,Calculated 294 (275-295); Potassium 4.4 mMol/L (3.4-5.1); Sodium 142 mMol/L (136-145); Total Protein 6.3 gm/dL (5.7-8.2); eGFR > 60 See Note
[2025-03-29 22:15] VITALS: BP 132/87; PULSE 87; RESP 19; TEMP 36.7; O2SAT 99
== END 2025-03-29 22:19 | disposition home or self-care (01) ==
PROVIDERS: Emergency Provider Emergency Medicine; PCP Nurse Practitioner Family
DX: I73.9 Peripheral vascular disease, unspecified (principal); Z87.891 Personal history of nicotine dependence
CPT/HCPCS: 36415; 80053; 85025; 96374; 99283; J2270

== ENCOUNTER 2025-03-30 08:35 | Emergency (ER) | payer MEDICARE, MEDICAID, SELFPAY ==
[2025-03-30] VITALS (9 sets, daily range): BP systolic 111–150; BP diastolic 50–84; PULSE 104–133; RESP 18–34; TEMP 36.4–36.8; O2SAT 96–100; BMI 18.3
--- NOTE | 2025-03-30 08:47 | EKG_ITS ---
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
--- NOTE | 2025-03-30 08:47 | XR_ITS ---
Examination: AP chest single view Technique one AP portable semiupright chest single view March 30, 2025 0922 hours INDICATIONS: Shortness of breath nausea vomiting beginning today. FINDINGS: Normal heart size. Lungs are clear. Moderate osteopenia IMPRESSION: No active disease
--- NOTE | 2025-03-30 08:48 | EKG_ITS ---
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1955 Requested By: Ovi Garcia Order Number: [id number] Reading MD: Ovi Garcia Measurements Intervals [place] Rate: 118 P: 64 RI: 153 QRS: 31 QRSD: 92 T: 61 QT: 320 QTc: 449 Interpretive Statements SINUS TACHYCARDIA LOW QRS VOLTAGE IN PRECORDIAL LEADS [QRS DEFLECTION < 1.0 mV IN CHEST LEADS] POSSIBLE RIGHT VENTRICULAR CONDUCTION DELAY [RSR (QR) IN V1/V2] ANTERIOR MYOCARDIAL INFARCTION , PROBABLY RECENT [40+ ms Q WAVE AND/OR ST/T ABNORMALITY IN V3/V4] ACUTE VA Compared to ECG 03/27/2025 05:33:12 Myocardial infarct finding now present T-wave abnormality no longer present /store/S0/[id number]
--- NOTE | 2025-03-30 08:51 | EDNOTE_ITS ---
<Statement entered by Grace Wong MD - 03/30/25 17:59> As co-signing physician, I was present and available for consult prn. ED General RME/HPI General Chief complaint: Nausea/Vomiting/Diarrhea Stated complaint: N/V Time Seen by Provider: 03/30/25 08:40 Arrival date/time: 03/30/25 08:35 RME / HPI RME / HPI narrative: 69-year-old male with past medical history of prostate cancer and osteomyelitis of the toe comes into the ED with chief complaint of coffee-ground emesis. Patient was previously seen in the ED on 03/27/2025 due to acute limb ischemia for which he was transferred to [facility] and was discharged the next day and came back to the ED on 03/29/2025 due to left lower leg pain again. 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 Patient today comes in brought by EMS with 1 episode of coffee-ground emesis, vitals showed tachycardia, but BP was stable.Patient stated that he did not have any procedure done in [facility]. Patient on assessment was in excruciating pain and only stated that he had a lot of pain in his feet. He mentioned has been taking his medication as prescribed including Plavix and aspirin. Otherwise he denied having any chest pain or abdominal pain. There is no history of cirrhosis. Otherwise no other complaints. Related Data Home Medications ?Medication ?Instructions ?Recorded ?Confirmed ciprofloxacin HCl 500 mg tablet ##14 05/17/14 ibuprofen 600 mg tablet ##60 05/17/14 ranitidine HCl 150 mg tablet ##60 05/17/14 Previous Rx's ?Medication ?Instructions ?Recorded ibuprofen 600 mg tablet 600 mg PO Q6HR PRN PAIN #25 tabs 04/21/16 clindamycin HCl 300 mg capsule 300 mg PO Q6H #28 caps 02/25/25 Allergies Allergy/AdvReac Type Severity Reaction Status Date / Time No Known Allergies Allergy Verified 03/27/25 05:19 Review of Systems Review of Systems Systems Reviewed: All systems reviewed, normal except as documented Past Medical History Social History SMOKING STATUS: Current some day smoker ED Exam Narrative Physical exam: Gen: A&O X 3, in moderate distress due to pain HEENT: NCAT, EOMI, Pupils reactive AR[place]IO, not icteric. External ears normal. No rhinorrhea. Dry mucous membranes. Neck: Supple, full range of motion, no observable masses, No meningeal sign. Lungs: No Respiratory distress, rapid shallow breathing, clear bilateral. CV: RRR, no murmurs. Abdomen: Soft, nondistended, No rebound tenderness. MSK: No joint swelling, no redness, right peripheral pulses present, left peripheral pulses absent, lumbar with no edema. Skin: No rashes, petechiae, lesions. Neuro: No focal neurological deficits appreciated, sensory and motor intact. Psych: Cooperative, appropriate mood and effect. Course Quality Measures none Orders Category Date Time Status Seasonal Tax Preparer Q4H START 00 Care 03/30/25 08:47 Completed Continuous Pulse Oximetry NOW Care 03/30/25 08:47 Completed EKG (ED ONLY) *Do not use* NOW Care 03/30/25 08:47 Completed EKG (ED ONLY) *Do not use* NOW Care 03/30/25 08:48 Completed In and Out Catheter X1 Care 03/30/25 09:23 Completed Insert IV NOW Care 03/30/25 08:48 Completed Obtain Old Medical Record X1 Care 03/30/25 08:49 Completed Transfuse,blood/blood products NOW Care 03/30/25 09:25 Completed Referral - Patient Care Secretary Stat Cons 03/30/25 09:50 Active CXRP [XR chest 1V portable] Stat Exams 03/30/25 08:47 Completed EKG (ED Only) Stat Exams 03/30/25 08:47 Draft EKG (ED Only) Stat Exams 03/30/25 08:48 Draft CBC [CBC] Stat Lab 03/30/25 08:45 Completed CMP [Comprehensive Metabolic Panel] Stat Lab 03/30/25 08:45 Completed Drug Screen,Urine Stat Lab 03/30/25 09:24 Completed Lactic Acid [Lactate (Lactic Acid)] Stat Lab 03/30/25 08:45 Completed Lactic Acid, 3 HR Stat Lab 03/30/25 12:20 Completed Magnesium Stat Lab 03/30/25 08:45 Completed Path Review Blood Smear Stat Lab 03/30/25 08:45 Completed Troponin I Stat Lab 03/30/25 08:45 Completed Type and Screen Stat Lab 03/30/25 08:45 Completed UA [Urinalysis] Stat Lab 03/30/25 09:24 Completed VBG [Venous Blood Gas] Stat Lab 03/30/25 08:57 Completed prbc [Red Blood Cells] Stat Lab 03/30/25 08:45 Completed HYDROmorphone INJ [Dilaudid Inj] Med 03/30/25 10:08 Discontinued 1 mg IVP X1 ONE Ondansetron Inj [Zofran Inj] Med 03/30/25 08:48 Discontinued 4 mg IVP X1 ONE Pantoprazole/Ns 80Mg IV Premix [Protonix/NS 80mg IV Med 03/30/25 08:48 Discontinued Premix] 80 mg in 100 ml IV X1 Pantoprazole/Ns 80Mg IV Premix [Protonix/NS 80mg IV Med 03/30/25 08:48 Discontinued Premix] 80 mg in 100 ml IV X1 Ringers Lactated 1000 ml [Lactated Ringers] 1,000 ml Med 03/30/25 08:48 Discontinued IV 999 mls/hr fentaNYL INJ [Sublimaze Inj] Med 03/30/25 09:15 Discontinued 100 mcg IVP X1 ONE fentaNYL INJ [Sublimaze Inj] Med 03/30/25 08:47 Discontinued 50 mcg IVP X1 ONE Vital Signs Vital signs: Vital Signs Temperature 98.2 F 03/30/25 08:37 Pulse Rate 113 H 03/30/25 08:37 Respiratory Rate 18 03/30/25 08:37 Blood Pressure 111/62 03/30/25 08:37 Pulse Oximetry (%) 98 03/30/25 08:37 Oxygen Delivery Method Nasal Cannula 03/30/25 08:37 Oxygen Flow Rate 6 03/30/25 08:37 Discharge Plan Plan Patient Disposition: [facility] Facility Pt Being Transferred to: [facility] Service Needed for Transfer: Vascular Surgery Prescriptions/Referrals Prescriptions/Med Rec: No Action ciprofloxacin HCl 500 MG tablet Qty: 14 ranitidine HCl 150 MG tablet Qty: 60 ibuprofen 600 MG tablet Qty: 60 ibuprofen 600 MG tablet 600 mg PO Q6HR PRN (Reason: PAIN) Qty: 25 0RF clindamycin HCl 300 mg capsule 300 mg PO Q6H Qty: 28 0RF Referrals: No Primary/Family,Physician [Primary Care Provider] - In 1 week Problem List Clinical Impression: Arterial occlusion, lower extremity, GI bleed Patient/Caregiver Discharge Instructions Print Language: Georgian Stand Alone Forms: Jaqueline Award Info., Patient Portal Info Letter MDM Narrative MDM hospital course: Patient was seen and evaluated upon arrival by myself. Diagnostic labs and imaging was ordered. Patient was in excruciating pain therefore fentanyl 50 mcg was given x 1. IV fluids and Protonix drip was also ordered. Spoke with GI specialist who stated that at this time given that patient does have limb ischemia and was on aspirin and Plavix due to his, but was complicated by GI bleed he would recommend transfer for vascular surgeon evaluation in the setting of GI bleed as patient may require higher level of care as if his as pirin and Plavix are discontinued his limb ischemia may worsen. Spoke with Dr. Burgess, vascular surgeon, at [facility] who stated he will accept the patient at this time for transfer ED to ED as patient will need an intervention. Was also aware of GI bleed and stated that they will have GI consulted. At this time patient is stable enough to be transferred. 13:51 Patient left for transfer. Case disclosed with Attending Dr. Marvin Garcia PGY2 Disclaimer: Even though this this note was dictated by speech recognition and even though it was carefully revised there may still be minor errors in client account assistant due to voice recognition software. Medication Administration(s) Medication Administration History Discontinued Medications Fentanyl Citrate (Fentanyl Cit Inj 50 Mcg/Ml Amp 2ml) 50 mcg IVP X1 ONE Stop: 03/30/25 08:48 Last Admin: 03/30/25 09:02 Dose: 50 mcg Documented By: Fentanyl Citrate (Fentanyl Cit Inj 50 Mcg/Ml Amp 2ml) 100 mcg IVP X1 ONE Stop: 03/30/25 09:16 Last Admin: 03/30/25 09:30 Dose: 100 mcg Documented By: GM Hydromorphone HCl (Hydromorphone Inj 2 Mg/Ml Vial) 1 mg IVP X1 ONE Stop: 03/30/25 10:09 Last Admin: 03/30/25 10:27 Dose: 1 mg Documented By: GM Pantoprazole Sodium (Protonix/Ns 80mg Iv Premix) 80 mg in 100 mls @ 400 mls/hr IV X1 ONE Stop: 03/30/25 09:02 Last Infusion: 03/30/25 09:25 Dose: Infused Documented By: Admin: 03/30/25 09:08 Dose: 400 mls/hr Documented By: BYRON Pantoprazole Sodium (Protonix/Ns 80mg Iv Premix) 80 mg in 100 mls @ 10 mls/hr IV X1 ONE Stop: 03/30/25 18:47 Last Admin: 03/30/25 09:28 Dose: 10 mls/hr Documented By: BYRON Lactated Ringer's (Lactated Ringers) 1,000 mls @ 999 mls/hr IV .Q1H1M ONE Stop: 03/30/25 09:48 Last Infusion: 03/30/25 09:28 Dose: Infused Documented By: Admin: 03/30/25 09:03 Dose: 999 mls/hr Documented By: BYRON Ondansetron HCl (Ondansetron Inj 2 Mg/Ml Inj 2 Ml) 4 mg IVP X1 ONE; Protocol Stop: 03/30/25 08:49 Last Admin: 03/30/25 09:02 Dose: 4 mg Documented By: BYRON
[2025-03-30] MEDS: fentaNYL CIT INJ 50 mCg/ML AMP 2ML IVP (09:02)
[2025-03-30] MEDS: ONDANSETRON INJ 2 MG/ML INJ 2 ML 4 MG IVP (09:02)
[2025-03-30] MEDS: RINGERS LACTATED 1000 ML 1,000 ML 999 ML IV (09:03)
[2025-03-30] MEDS: PANTOPRAZOLE/NS 80MG IV PREMIX 80 MG/100 ML BAG 400 MG IV (09:08)
[2025-03-30 09:18] LABS: Lactate (Lactic Acid) 4.6 mMol/L (0.4-2.0)
[2025-03-30 09:19] LABS: Basophils # (Auto) 0.1 Thou/mm3 (0.0-0.2); Basophils % (Auto) 1 % (0-2.5); Eosinophils # (Auto) 0.0 Thou/mm3 (0.0-0.5); Eosinophils % (Auto) 0 % (0-10); Immature Granulocytes Auto 0.03 Thou/mm3 (0.00-0.00); Lymphocytes # (Auto) 1.7 Thou/mm3 (1.0-4.8); Lymphocytes % (Auto) 23 % (10-50); Mean Corpuscular HGB Conc 32.8 g/dl (31.0-37.0); Mean Corpuscular Hemoglobin 26.8 pg (25.0-35.0); Mean Corpuscular Volume 82 fL (80-100); Monocytes # (Auto) 0.6 Thou/mm3 (0.0-0.8); Monocytes % (Auto) 7 % (0-12); Neutrophils # (Auto) 5.1 Thou/mm3 (1.8-7.7); Neutrophils % (Auto) 68 % (37-80); Nucleated Red Blood Cell # 0.02 Thou/mm3 (0.00-0.00); Nucleated Red Blood Cell % 0 /100 WBC (0); Platelet Count 272 Thou/mm3 (140-440); RDW Standard Deviation 40.3 fL (35.1-43.9); Red Blood Count 2.35 Miln/mm3 (4.50-5.90); White Blood Count 7.5 Thou/mm3 (3.8-10.6)
[2025-03-30 09:23] LABS: Hematocrit 19.2 % (41.0-53.0); Hemoglobin 6.3 g/dL (13.5-16.0)
[2025-03-30 09:23] LABS: Base Excess, Venous 0 (-3-3); O2 Saturation, Venous 39 % (96-97); PCO2, Venous 26 mmHg (36-56); PO2, Venous 20 mmHg (15-58); pH, Venous 7.56 (7.33-7.66)
[2025-03-30] MEDS: PANTOPRAZOLE/NS 80MG IV PREMIX 80 MG/100 ML BAG 10 MG IV (09:28)
[2025-03-30] MEDS: fentaNYL CIT INJ 50 mCg/ML AMP 2ML 100 MCG IVP (09:30)
[2025-03-30 09:36] LABS: Collection Type, Urine Voided; Squamous Epithelial Cell,Urine 0 /hpf (0-5)
--- NOTE | 2025-03-30 09:47 | PC.NURSE ---
[facility] CONTACTED, SPOKE WITH NANCY. INFORMED THAT WE ARE ATTEMPTING TO OBTAIN RECORDS FROM THIS WEEK WHEN PT WAS TRANSFERRED BUT MEDICAL RECORD STATED THAT THE ER NOTES ARE BLANK AND CANNOT BE SENT AT THIS TIME. NANCY WAS ABLE TO FIND THAT PT WAS CONSULTED BY DR VELOZ VASCULAR SURGEON WHO STATED THAT PT HAS CHRONIC ISCHEMIA AND NO EMERGENT INTERVENTION WAS NEEDED AT THAT TIME. PT WAS THEN D/C'D FROM [facility] WITH PLAVIX AND FOLLOW UP. PT IS HERE NOW HAVING PAIN TO LEG AND WAS SEEN YESTERDAY WITH SAME COMPLAINT BUT TODAY PT ALSO IS EXPERIENCING BLOOD IN HIS VOMIT X1. AWARE
[2025-03-30 09:48] LABS: Bilirubin,Urine Negative (Negative); Blood,Urine 1+ (Negative); Clarity,Urine Clear (Clear/Hazy); Color,Urine Lt-Yellow (Lt Yel-Yel); Glucose, Urine Negative (Negative); Ketones,Urine 1+ (Negative); Leukocyte Esterase,Urine Negative (Negative); Nitrite,Urine Negative (Negative); PH,Urine 5.5 (5.0-7.0); Protein,Urine Negative (Neg - Trace); RBC,Urine 18 /hpf (0-3); Specific Gravity,Urine 1.024 (1.001-1.035); Urobilinogen,Urine Negative mg/dL (0.0-1.0); WBC,Urine 1 /hpf (0-5)
[2025-03-30 09:59] LABS: Alanine Aminotransferase 31 U/L (10-49); Albumin, Serum 3.8 gm/dL (3.4-4.8); Albumin/Globulin Ratio 1.9 (1.2-2.2); Alkaline Phosphatase 71 U/L (46-116); Anion Gap 12 (7-16); Aspartate Amino Transferase 46 U/L (0-34); BUN/Creatinine Ratio 40 Ratio (12-20); Bilirubin,Total 0.3 mg/dL (0.3-1.2); Blood Urea Nitrogen 44 mg/dL (9-23); Calcium 9.2 mg/dL (8.3-10.6); Calcium (Corrected) 9.4 mg/dL (8.5-10.1); Carbon Dioxide 22.7 mMol/L (20.0-31.0); Chloride 106 mMol/L (98-107); Creatinine (Component) 1.1 mg/dL (0.6-1.3); Estimated Creatinine Clearance 45.1 mL/min (>60); Globulin 2.0 gm/dL (2.3-3.5); Glucose 181 mg/dL (74-106); Magnesium 2.0 mg/dL (1.6-2.6); Osmolality,Calculated 297 (275-295); Potassium 4.4 mMol/L (3.4-5.1); Sodium 141 mMol/L (136-145); Total Protein 5.8 gm/dL (5.7-8.2); eGFR > 60 See Note
[2025-03-30 10:00] LABS: Amphetamine/Methamp Scrn,U Negative (Negative); Barbiturate Screen,Urine Negative (Negative); Benzodiazepines Screen,Urine Negative (Negative); Benzoylecgonine Screen, Ur Negative (Negative); Fentanyl Screen,Urine Negative (Negative); Opiate Screen,Urine Positive (Negative); THC Screen,Urine Negative (Negative)
--- NOTE | 2025-03-30 10:01 | PC.CC ---
Addendum entered by Dexter German RN 03/30/25 15:24: [address] [facility]. Called [facility], spoke to [facility] and she confirmed that she received the paperwork. 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 Addendum entered by Dexter German RN 03/30/25 15:22: 1303 Called [facility], spoke to [facility] and setup the stat transport. 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 Addendum entered by Dexter German RN 03/30/25 15:21: 1300 transfer packet is complete with CD inside including all signatures. Notified charge nurse of the transfer packet and number to call for report. Addendum entered by Dexter German RN 03/30/25 11:32: 1122 received call from Dimple at [facility] that peer to peer has been done. Pt is accepted at [facility] for ED to ED transfer. Accepted by Dr. Burgess. Report can be called at [phone]. Addendum entered by Dexter German RN 03/30/25 11:13: 1104 called [facility] to initiate the transfer. Left VM. Addendum entered by Dexter German RN 03/30/25 10:25: 1024 called [facility] to initiate the transfer. Left VM. Original Note: 1000 clinicals sent to [facility] and [facility]. [address] Betancourt that pt needs to be transferred for dx GI bleed complicated by acute limb ischemia needs vascular/GI services. Dr. Betancourt informed me that pt 2 days ago pt was transferred to [facility] for vascular surgery services where he was discharged home on ASA and plavix, no procedure was performed. Now pt presented with bloody emesis. Pt is otherwise alert and oriented.
[2025-03-30 10:05] LABS: Path Review Blood Smear Sent to Pathologist
[2025-03-30 10:07] LABS: Troponin I 1.163 ng/mL (0.0-0.045)
[2025-03-30] MEDS: HYDROmorphone INJ 2 MG/ML VIAL 1 MG IVP (10:27)
--- NOTE | 2025-03-30 12:00 | PC.NURSE ---
per Dr. Betancourt, Only give pt 1 unit of blood at this time.
[2025-03-30 12:09] LABS: Reflex Lactate? Y
[2025-03-30 12:29] LABS: Lactic Acid, 3 HR 2.7 mMol/L (0.4-2.0)
--- NOTE | 2025-03-30 15:11 | PC.NURSE ---
@1345- SBAR report given to [employer] Specialist at bedside for ED-ED transfer to [facility] @4890- SBAR report given to Luanne LANTIGUA from [facility]
== END 2025-03-30 13:30 | disposition short-term general hospital (02) ==
PROVIDERS: Emergency Provider Family Medicine
DX: I70.202 Unspecified atherosclerosis of native arteries of extremities, left leg (principal); K92.2 Gastrointestinal hemorrhage, unspecified; R00.0 Tachycardia, unspecified; R11.2 Nausea with vomiting, unspecified; Z85.46 Personal history of malignant neoplasm of prostate; F17.200 Nicotine dependence, unspecified, uncomplicated
CPT/HCPCS: 51701; 36415; 36430; 71045; 80053; 80307; 81001; 82803; 83605; 83735; 84484; 85025; 86850; 86900; 86901; 86923; 93005; 96365; 96374; 96375; 96376; 99284; J1171; J2405; J3010; J3490; J7120; P9016

== ENCOUNTER → 2025-07-17 | Outpatient (CLI) | payer MEDICARE, MEDICAID, SELFPAY ==
--- NOTE | 2025-07-17 09:00 | XR_ITS ---
Examination: CT chest, without intravenous contrast. Sagittal and coronal 2-D reconstructions. Exam date and time: July 17, 2025, 0853 hours INDICATIONS: Nicotine dependence, smoking history 20 years CTDI:vol (mGy) 6.99 DLP: (mGycm) 235 Technique: Multiple 3.0 mm axial sections of the chest to been obtained. Bone and lung density settings are obtained. Sagittal and coronal 2-D reconstructions have been obtained. Low dose protocols were performed. One or more of the following dose reduction techniques were used; automated exposure control, adjustment of the mA and/or KV according to patient size, use of iterative reconstruction technique. Findings: No thoracic aortic aneurysmal dilatation Pulmonary artery segments are not enlarged Heavy calcification left anterior descending left circumflex right coronary arteries Mild enlargement cardiac contour. 8 mm calcified granuloma posterior left lung 3 mm pulmonary nodule left upper lobe image 158 6 mm pulmonary nodule right middle lobe image 198 No pneumonia or pulmonary edema No visualized liver or splenic lesion No pancreatic mass Kidneys partially visualized no hydronephrosis Prominent osteopenia IMPRESSION: Heavy coronary artery calcification Noncalcified pulmonary nodules as above, with this study as baseline recommend 6-month follow-up CT chest without contrast
== END | disposition home or self-care (01) ==
DX: I25.10 Atherosclerotic heart disease of native coronary artery without angina pectoris (principal); R91.8 Other nonspecific abnormal finding of lung field
CPT/HCPCS: 71250